=== PATIENT | male | born 1995 | race African-American/Black ===

== ENCOUNTER 2022-04-15 15:40 | Emergency (ER) | payer SELFPAY ==
[2022-04-15] MEDS ORDERED: Ondansetron PF 4 MG/2 ML Vial ONE (17:20)
[2022-04-15] MEDS ORDERED: Ketorolac Tromethamine 30 MG/ML VIAL ONE (17:20)
[2022-04-15] MEDS ORDERED: Acetaminophen 500 MG TAB ONE (17:21)
[2022-04-15] MEDS ORDERED: SUMAtriptan Succinate 6 MG/0.5 ML VIAL ONE (18:26)
== END 2022-04-15 18:51 | disposition home or self-care (01) ==
LOC: CSHERS 15:40
DX: G44.009 Cluster headache syndrome, unspecified, not intractable (principal); F17.210 Nicotine dependence, cigarettes, uncomplicated
CPT/HCPCS: 36415; 85652; 94760; 96372; 96374; 96375; J1885; J2405; J3030

== ENCOUNTER 2025-06-12 17:57 | Emergency (ER) | payer SELFPAY ==
[2025-06-12] MEDS ORDERED: Metoclopramide HCl 10 MG (2 mL) VIAL ONE (18:26)
[2025-06-12] MEDS ORDERED: Ketorolac Tromethamine 30 MG (1 mL) VIAL ONE (18:26)
[2025-06-12] MEDS ORDERED: Milk Of Magnesia 30 ML UDCUP ONE (18:26)
[2025-06-12] MEDS ORDERED: Lidocaine Viscous Sol 2% 15 ml UD Cup ONE (18:26)
[2025-06-12 19:03] LABS: #Basophils 0.04 10x3/uL (0.0-0.2); #Eosinophils 0.07 10x3/uL (0.0-0.5); #Monocytes 0.41 10x3/uL (0.0-1.1); #Neutrophils 3.06 10x3/uL (1.5-8.4); %Basophils 0.8 % (0.0-2.0); %Eosinophils 1.3 % (0.0-6.0); %Lymphocytes 31.9 % (18.0-47.0); %Monocytes 7.8 % (0.0-10.0); %Neutrophils 58.0 % (40.0-75.0); Hematocrit 39.9 % (38.8-50.0); Hemoglobin 13.4 g/dL (13.5-17.5); Mean Corpuscular Hemoglobin 31.0 pg (27.0-33.0); Mean Corpuscular Volume 92.4 fL (81.2-95.1); Platelet Count 244 10x3/uL (150-450); Red Blood Cell (RBC) Count 4.32 10x6/uL (4.32-5.72); White Blood Cell (WBC) Count 5.27 10x3/uL (3.5-10.5)
[2025-06-12 19:21] LABS: ALT (SGPT) 16 U/L (Less than 45); AST (SGOT) 40 U/L (11-34); Albumin 4.8 g/dL (3.1-4.5); Alkaline Phosphatase 54 U/L (40-110); Anion Gap 12 mmol/L (10-20); BUN (Urea Nitrogen) 14 mg/dL (8.9-20.6); Bilirubin, Total 2.7 mg/dL (0.3-1.2); Calc. Creatinine Clearance 0 mL/min (70-130); Calcium 9.7 mg/dL (7.8-10.44); Carbon Dioxide 28 mmol/L (22-29); Chloride 105 mmol/L (98-107); Globulin 2.7 g/dL (2.4-3.5); Glucose 88 mg/dL (70-105); Lipase 23 U/L (8-78); Potassium 3.7 mmol/L (3.5-5.1); Sodium 141 mmol/L (136-145)
== END 2025-06-12 19:40 | disposition home or self-care (01) ==
LOC: CSHERS 17:57
DX: E86.0 Dehydration (principal); R51.9 Headache, unspecified; F17.210 Nicotine dependence, cigarettes, uncomplicated
CPT/HCPCS: 80053; 83690; 85025; 93005; 96374; 96375; J1885; J2765

== ENCOUNTER 2025-09-05 18:51 | Emergency (ER) | payer SELFPAY | END 2025-09-05 20:50 | LOC: CSHERS 18:51 | DX: J06.9 Acute upper respiratory infection, unspecified (principal); B97.89 Other viral agents as the cause of diseases classified elsewhere; F17.210 Nicotine dependence, cigarettes, uncomplicated | CPT/HCPCS: 87428; 99283 ==